=== PATIENT | female | born 1990 | race Hispanic/Latino ===

== ENCOUNTER → 2018-01-02 | Day surgery (SDC) | payer BC ==
[~2018-01-02] MED LIST: DICYCLOMINE HCL10 MG PO; FENTANYL CITRATE/PF 100MCG/2 ML INJ ONE; HYOSCYAMINE SULFATE 0.5 MG/ML AMP ONE; LIDOCAINE HCL 2% LOCAL INJ 5 ML SDV VIAL INJ ONE; MIDAZOLAM HCL 2 MG/2 ML VIAL ONE; NEXPLANON68 MG; OMEPRAZOLE40 MG PO; PROPOFOL IV EMULSION 10 MG/ML 20 ML VIAL ONE
[2018-01-02 17:04] LABS: WBC,FECAL (FECAL LACTOFERRIN) NEGATIVE (NEGATIVE)
--- NOTE | 2018-01-03 05:44 | Operative Report ---
DATE OF PROCEDURE: January 02, 2018 PROCEDURE PERFORMED: Esophagogastroduodenoscopy with biopsies and colonoscopy with biopsies. REFERRING PHYSICIAN: Dr. Zhanna Padilla in [place]. INDICATIONS FOR EGD: History of heartburn, nausea. INDICATIONS FOR COLONOSCOPY: Lower abdominal pain, chronic diarrhea. MEDICATION: Patient was done under MAC. Please see anesthesiologist note. PROCEDURE IN DETAIL: With the patient in left lateral decubitus position, flexible fiberoptic Olympus gastroscope was introduced into the esophagus under direct visualization without any difficulty. There was some patchy erythema noted in distal esophagus. The scope was then advanced with ease into her stomach. Mucosa overlying the antrum and the body revealed some patchy erythema and mild to moderate edema, and biopsies were obtained and sent to stain for H. pylori. Pylorus appeared to be of normal contour and shape. It was intubated with ease and the scope was advanced all the way to the second portion of the duodenum. Biopsies were obtained from the proximal second portion to rule out sprue considering patient's history of diarrhea. Mucosa overlying the duodenal bulb appeared to be within normal limits. The scope was then withdrawn back into the stomach and retroflexed, and the mucosa overlying the fundus and the cardia appeared to be within normal limits. The scope was then straightened out. It was subsequently withdrawn. Patient tolerated the procedure well. IMPRESSION: 1. Distal esophagitis, mild. 2. Gastritis, biopsied. Biopsy sent to stain for Helicobacter pylori. 3. Rule out sprue. PLAN: Follow up histology. Initiate Protonix 40 mg 1 p.o. q.a.m. a.c. Patient was then turned around. After adequate lubrication of the anal canal, flexible fiberoptic Olympus colonoscope was inserted into the rectum with ease and advanced all the way to the cecum. Mucosa overlying the cecum appeared to be within normal limits. The ileocecal valve was intubated and the scope was advanced into the terminal ileum. Biopsies were obtained. The scope was then withdrawn back into the colon. It was then withdrawn slowly. Mucosa overlying the ascending and the transverse grossly appeared to be within normal limits. Mild patchy inflammatory changes were noted in the left colon as well as the rectum, and random biopsies were obtained. The scope was then retroflexed into the distal rectum and area around the dentate line appeared to be within normal limits. The scope was then straightened out. It was subsequently withdrawn after securing an adequate stool specimen that was sent for the appropriate stool studies. Patient tolerated the procedure well. IMPRESSION: 1. Mild patchy left-sided colitis. 2. Proctitis, mild. PLAN: Follow up histology. Follow up stool studies. Initiate Bentyl 10 mg 1 p.o. t.i.d. and VSL#3 DS 1 p.o. every day. Job#: [id number] cc:DR. ZHANNA PADILLA, [employer] [place]
[2018-01-03 14:17] LABS: C DIFFICILE TOXIN A&B AMP PROB NEGATIVE (NEGATIVE)
== END | disposition home or self-care (01) ==
LOC: OR 14:01
PROVIDERS: ATTEND Internal Medicine Gastroenterology
DX: K29.70 Gastritis, unspecified, without bleeding (principal); K51.50 Left sided colitis without complications; K20.9 Esophagitis, unspecified; K21.9 Gastro-esophageal reflux disease without esophagitis; K62.89 Other specified diseases of anus and rectum; F41.9 Anxiety disorder, unspecified
CPT/HCPCS: 43239; 45380; 81025; 83630; 83993; 87045; 87177; 87328; 87493; J1980; J2001; J2250